=== PATIENT | female | born 1980 | race Caucasian/White ===

== ENCOUNTER 2017-05-16 13:19 | Emergency (ER) | payer OTHER ==
[~2017-05-16] VITALS: Ht 162.6 cm; Wt 91.4 kg
[~2017-05-16 13:19] MED LIST: AMOXICILLIN500 MG PO; ARTIFICIAL TEAR1 OS; AUGMENTIN875TAB PO; BL IBUPROFEN200 MG PO; BUSPIRONE10 MG PO; CELEXA20 M1 PO; CELEXA40 MG PO; CIPRO500 MG OR; LACRI-LUBE S.O.P. OS; LORTAB 5-325 MG1 TAB PO; LORTAB 7.57.5 MG PO; MEDDOSEPAK OR; ORTHO TRI CYCLEN PO; PEPCID20 MG PO; PREDNISONE10 MG PO; SEASONIQUE OR; SERTRALINE50 MG PO; TRAZODONE100 MG OR; TRAZODONE50 MG PO; ULTRAM50 MG OR; XANAX0.5 MG PO; ZITHROMAX250 MG PO; ZPAK PO
[2017-05-16] MEDS ORDERED: GENTAMICIN15 ML/BTL OS (14:03)
[2017-05-16] MEDS ORDERED: (None)3.5 GM OS (14:03)
[2017-05-16 14:04] VITALS: BP 136/94
[2017-05-16] MEDS ORDERED: LORTAB 10-325 M1 TAB PO (15:14)
== END 2017-05-16 15:33 | disposition home or self-care (01) | DRG 125 ==
LOC: ED 13:19
PROC: 3E1CX8Z Irrigation of Eye using Irrigating Substance (ICD-10-PCS; principal; 2017-05-16)
DX: H10.212 Acute toxic conjunctivitis, left eye (principal); H57.12 Ocular pain, left eye

== ENCOUNTER 2018-02-27 21:06 | Observation (INO) | payer OTHER ==
[~2018-02-27] VITALS: Ht 162.6 cm; Wt 86.0 kg
[~2018-02-27 21:06] MED LIST changes: +(None)3.5 GM OS; +GENTAMICIN15 ML/BTL OS; +LORTAB 10-325 M1 TAB PO
[2018-02-27 21:50] LABS: URINE BLOOD DIPSTICK LARGE (NEGATIVE); URINE COLOR YELLOW; URINE GLUCOSE - DIPSTICK NEGATIVE (NEGATIVE); URINE KETONE 15 mg/dL (NEGATIVE); URINE LEUK ESTERASE NEGATIVE (NEGATIVE); URINE PROTEIN - DIPSTICK 100 mg/dL (NEG-TRACE); URINE SPECIFIC GRAVITY >=1.030; URINE UROBILINOGEN - DIPSTICK 0.2 E.U./dL (0.2)
[2018-02-27 21:51] LABS: URINE BILIRUBIN - DIPSTICK SMALL (NEGATIVE); URINE CLARITY CLOUDY; URINE NITRITE - DIPSTICK POSITIVE (Negative)
[2018-02-27 21:52] LABS: HEMATOCRIT 41.1 % (37.0-47.0); MEAN CELL VOLUME 83.9 fL CALC (80.0-100.0); MEAN CORPUSCULAR HGB 28.6 pG CALC (26.0-32.0); MEAN CORPUSCULAR HGB CONC 34.1 g/L CALC (32.0-36.0); NEUT# 22.97 thou/uL (2.00-7.15); RED BLOOD COUNT 4.9 mill/uL (4.20-5.60)
[2018-02-27 22:00] LABS: URINE BACTERIA MODERATE hpf; URINE RBC TNTC RBC/hpf (0-5); URINE SQUAMOUS EPITHELIAL CELL FEW EPI/hpf (0-FEW)
[2018-02-27 22:03] LABS: ALKALINE PHOSPHATASE 119 u/l (38-126); AMYLASE 32 u/l (30-110); ANION GAP 18 (6-22 (CALC)); BUN 22 mg/dL (7-17); BUN/CREATININE RATIO 26 (12-20 (CALC)); CARBON DIOXIDE 25 mmol/l (22-30); CHLORIDE 99 mmol/l (95-108); CREATININE 0.9 mg/dL (0.5-1.0); GFR > 60 ML/MIN (>=60 (CALC)); GFR FOR AFR.AMER. > 60 ML/MIN (>=60 (CALC)); LIPASE 92 u/l (23-300); POTASSIUM 3.8 mmol/l (3.5-5.1); SGOT/AST 18 u/l (14-36); SGPT/ALT 28 u/l (9-52); SODIUM 139 mmol/l (137-146); TOTAL PROTEIN 7.4 g/dL (6.3-8.2)
[2018-02-28 01:45] VITALS: BP 103/68
[2018-02-28 04:40] VITALS: BP 106/72
[2018-02-28 04:50] VITALS: BP 182/67
[2018-02-28 08:00] VITALS: BP 105/72
[2018-02-28 13:24] LABS: HEMOGLOBIN 11.1 g/dl (12.0-16.0); IMMATURE GRANULOCYTES 0.8 % (0.0-1.0); MEAN CELL VOLUME 85.7 fL CALC (80.0-100.0); MEAN CORPUSCULAR HGB 28.9 pG CALC (26.0-32.0); MEAN CORPUSCULAR HGB CONC 33.7 g/L CALC (32.0-36.0); NEUT# 11.37 thou/uL (2.00-7.15); RED BLOOD COUNT 3.84 mill/uL (4.20-5.60); RED CELL DISTRI WIDTH 13.2 % (11.5-15.5)
[2018-02-28 13:25] LABS: HEMATOCRIT 32.9 % (37.0-47.0)
[2018-02-28 16:05] VITALS: BP 124/87
[2018-02-28 16:40] LABS: BARBITURATES NEGATIVE (NEGATIVE); COCAINE NEGATIVE (NEGATIVE); METHADONE NEGATIVE (NEGATIVE); TETRAHYDROCANNABIONOL POSITIVE (NEGATIVE); TRICYLIC ANTIDEPRESSANTS NEGATIVE (NEGATIVE)
[2018-02-28 16:41] LABS: OXCYCODONE NEGATIVE (NEGATIVE)
[2018-02-28 19:00] VITALS: BP 117/83
[2018-03-01 04:00] VITALS: BP 133/85
[2018-03-01 05:16] LABS: HEMATOCRIT 30.3 % (37.0-47.0); HEMOGLOBIN 10.2 g/dl (12.0-16.0); IMMATURE GRANULOCYTES 0.3 % (0.0-1.0); MEAN CELL VOLUME 85.4 fL CALC (80.0-100.0); MEAN CORPUSCULAR HGB 28.7 pG CALC (26.0-32.0); MEAN CORPUSCULAR HGB CONC 33.7 g/L CALC (32.0-36.0); NEUT# 7.5 thou/uL (2.00-7.15); RED BLOOD COUNT 3.55 mill/uL (4.20-5.60); RED CELL DISTRI WIDTH 13.1 % (11.5-15.5)
[2018-03-01 05:31] LABS: ANION GAP 12 (6-22 (CALC)); BUN 11 mg/dL (7-17); BUN/CREATININE RATIO 19 (12-20 (CALC)); CARBON DIOXIDE 22 mmol/l (22-30); CHLORIDE 106 mmol/l (95-108); CREATININE 0.6 mg/dL (0.5-1.0); GFR > 60 ML/MIN (>=60 (CALC)); GFR FOR AFR.AMER. > 60 ML/MIN (>=60 (CALC)); MAGNESIUM 1.6 mg/dL (1.6-2.3); POTASSIUM 3.5 mmol/l (3.5-5.1); SODIUM 136 mmol/l (137-146)
[2018-03-01 08:33] VITALS: BP 129/85
[2018-03-01] MEDS ORDERED: PEPCID20 MG PO (11:18)
[2018-03-01] MEDS ORDERED: IBUPROFEN600 MG PO (11:18)
[2018-03-01] MEDS ORDERED: CIPROFLOXACN500 MG PO (11:18)
[2018-03-01] MEDS ORDERED: METRONIDAZOL500 MG PO (11:18)
[2018-03-01] MEDS ORDERED: FLORASTOR250 M1 PO (11:18)
== END 2018-03-01 12:27 | disposition home or self-care (01) | DRG 387 ==
LOC: ED 21:06 → ED-I 02-28 00:29 → ED 02-28 00:45 → MS2 02-28 00:46
PROVIDERS: Emergency Medicine; Nurse Practitioner Family; ADMIT Internal Medicine; ATTEND Internal Medicine
DX: K50.10 Crohn's disease of large intestine without complications (principal); F11.10 Opioid abuse, uncomplicated; F12.10 Cannabis abuse, uncomplicated; F15.10 Other stimulant abuse, uncomplicated; F17.210 Nicotine dependence, cigarettes, uncomplicated; F16.10 Hallucinogen abuse, uncomplicated
CPT/HCPCS: G0378; Q9967

== ENCOUNTER 2018-09-26 13:36 | Emergency (ER) | payer OTHER ==
[~2018-09-26] VITALS: Ht 162.6 cm; Wt 90.9 kg
[~2018-09-26 13:36] MED LIST changes: +CIPROFLOXACN500 MG PO; +FLORASTOR250 M1 PO; +IBUPROFEN600 MG PO; +METRONIDAZOL500 MG PO
[2018-09-26 14:50] VITALS: BP 159/78
== END 2018-09-26 14:50 | disposition home or self-care (01) ==
LOC: ED 13:36
DX: S00.83XA Contusion of other part of head, initial encounter (principal); W22.8XXA Striking against or struck by other objects, initial encounter; Y92.009 Unspecified place in unspecified non-institutional (private) residence as the place of occurrence of the external cause

== ENCOUNTER 2018-12-05 21:29 | Emergency (ER) | payer OTHER ==
[~2018-12-05] VITALS: Ht 162.6 cm; Wt 91.0 kg
[2018-12-05] MEDS ORDERED: KEFLEX500 M1 PO (21:53)
[2018-12-05 22:15] VITALS: BP 152/92
== END 2018-12-05 22:30 | disposition home or self-care (01) ==
LOC: ED 21:29
DX: S50.862A Insect bite (nonvenomous) of left forearm, initial encounter (principal); L08.9 Local infection of the skin and subcutaneous tissue, unspecified; F17.200 Nicotine dependence, unspecified, uncomplicated; W57.XXXA Bitten or stung by nonvenomous insect and other nonvenomous arthropods, initial encounter

== ENCOUNTER 2019-10-11 19:19 | Emergency (ER) | payer OTHER ==
[~2019-10-11] VITALS: Ht 162.6 cm; Wt 91.0 kg
[~2019-10-11 19:19] MED LIST changes: +KEFLEX500 M1 PO
[2019-10-11 21:27] LABS: IMMATURE GRANULOCYTES 0.3 % (0.0-5.0); MEAN CELL VOLUME 86.5 fL CALC (80.0-100.0); MEAN CORPUSCULAR HGB CONC 33.5 g/L CALC (32.0-36.0); NEUT# 6.44 thou/uL (2.00-7.15); RED BLOOD COUNT 4.31 mill/uL (4.20-5.60); RED CELL DISTRI WIDTH 13.2 % (11.5-15.5)
[2019-10-11 21:29] LABS: HEMATOCRIT 37.3 % (37.0-47.0); HEMOGLOBIN 12.5 g/dl (12.0-16.0)
[2019-10-11 21:30] LABS: URINE BILIRUBIN - DIPSTICK NEGATIVE (NEGATIVE); URINE BLOOD DIPSTICK MODERATE (NEGATIVE); URINE COLOR YELLOW; URINE GLUCOSE - DIPSTICK NEGATIVE (NEGATIVE); URINE KETONE NEGATIVE (NEGATIVE); URINE LEUK ESTERASE NEGATIVE (NEGATIVE); URINE NITRITE - DIPSTICK NEGATIVE (Negative); URINE PROTEIN - DIPSTICK NEGATIVE (NEG-TRACE); URINE SPECIFIC GRAVITY 1.025; URINE UROBILINOGEN - DIPSTICK 0.2 E.U./dL (0.2)
[2019-10-11 21:31] LABS: HCG SERUM/URINE (NEG/POS) NEGATIVE (NEGATIVE)
[2019-10-11 21:39] LABS: ALBUMIN 3.9 g/dL (3.2-5.0); ALKALINE PHOSPHATASE 75 u/l (38-126); BUN 16 mg/dL (7-17); BUN/CREATININE RATIO 27 (12-20 (CALC)); CHLORIDE 106 mmol/l (95-108); CREATININE 0.6 mg/dL (0.5-1.0); GFR > 60 ML/MIN (>=60 (CALC)); GFR FOR AFR.AMER. > 60 ML/MIN (>=60 (CALC)); POTASSIUM 4.1 mmol/l (3.5-5.1); SGOT/AST 17 u/l (14-36); SODIUM 140 mmol/l (137-146); TOTAL PROTEIN 7.1 g/dL (6.3-8.2)
[2019-10-11 21:40] LABS: URINE WBC 0-2 WBC/hpf (0-5)
[2019-10-11 21:41] LABS: ANION GAP 11 (6-22 (CALC)); BILIRUBIN, TOTAL 0.3 mg/dL (0.0-1.4); CARBON DIOXIDE 27 mmol/l (22-30); URINE SQUAMOUS EPITHELIAL CELL FEW EPI/hpf (0-FEW)
[2019-10-11] MEDS ORDERED: CLEOCIN300 MG PO (23:14)
[2019-10-11] MEDS ORDERED: CLARITIN10 M1 PO (23:15)
[2019-10-11 23:35] VITALS: BP 139/98
== END 2019-10-11 23:40 | disposition home or self-care (01) ==
LOC: ED 19:19
PROVIDERS: Emergency Medicine
DX: J02.0 Streptococcal pharyngitis (principal); F17.210 Nicotine dependence, cigarettes, uncomplicated

== ENCOUNTER 2020-01-30 | Emergency (ER) | payer SELFPAY ==
[~2020-01-30] MED LIST changes: +CLARITIN10 M1 PO; +CLEOCIN300 MG PO
[2020-01-30 15:24] LABS: URINE BILIRUBIN - DIPSTICK NEGATIVE (NEGATIVE); URINE BLOOD DIPSTICK TRACE-LYSED (NEGATIVE); URINE CLARITY CLEAR; URINE COLOR YELLOW; URINE GLUCOSE - DIPSTICK NEGATIVE (NEGATIVE); URINE KETONE NEGATIVE (NEGATIVE); URINE LEUK ESTERASE NEGATIVE (Negative); URINE NITRITE - DIPSTICK NEGATIVE (Negative); URINE PROTEIN - DIPSTICK NEGATIVE (NEG-TRACE); URINE UROBILINOGEN - DIPSTICK 0.2 E.U./dL (0.2)
--- NOTE | 2020-02-01 16:15 | NUR ---
COVID results called to patient. Encouraged Stay Home - Stay Safe measures, as well as, social distancing and frequent handwashing with necessary outings and work.
== END 2020-01-30 16:55 | disposition home or self-care (01) | DRG 866 ==
DX: B34.9 Viral infection, unspecified (principal); F17.200 Nicotine dependence, unspecified, uncomplicated; Z20.828 Contact with and (suspected) exposure to other viral communicable diseases